=== PATIENT | male | born 1985 | race Two or more races ===

== ENCOUNTER 2021-10-24 11:59 | Outpatient (REF) | payer MEDICARE, MEDICAID, SELFPAY ==
--- NOTE | ~2021-10-24 | XR_ITS ---
EXAMINATION: XR KNEE, RIGHT CLINICAL INFORMATION: Right knee pain COMPARISON: None TECHNIQUE: Four views of the right knee. FINDINGS: There is no acute fracture or subluxation. Compartmental joint spaces are maintained. No joint effusion. The soft tissues are unremarkable. XR/XR knee RT 4V IMPRESSION: Normal right knee.
--- NOTE | ~2021-10-24 | XR_ITS ---
EXAMINATION: XR HAND, RIGHT CLINICAL INFORMATION: Right hand pain COMPARISON: None TECHNIQUE: PA, lateral, and oblique views of the right hand. FINDINGS: There is no fracture or dislocation. Alignment is anatomic. Joint spaces are maintained. Soft tissues are unremarkable. Tiny osseous excrescence extends from the first metacarpal shaft. XR/XR hand RT min 3V IMPRESSION: No suspicious findings of the right hand. No significant arthritic change.
--- NOTE | ~2021-10-24 | XR_ITS ---
EXAMINATION: XR RIBS, RIGHT CLINICAL INFORMATION: Pain. COMPARISON: None TECHNIQUE: 3 views of the right ribs were obtained. Frontal view of the chest. FINDINGS: Lungs are clear. No consolidation, pneumothorax, or pleural effusion. The cardiomediastinal silhouette and pulmonary vasculature are normal. Osseous structures are unremarkable. A marker overlies the lower right ribs. Ribs are intact. No fractures are identified. XR/XR ribs RT min 3V w CXR1V IMPRESSION: Clear lungs. No focal rib abnormality identified.
== END 2021-10-24 12:00 | disposition home or self-care (01) ==
LOC: HO.XRAY 11:59
PROVIDERS: PCP Family Medicine; Visit Provider Family Medicine
DX: M25.561 Pain in right knee (principal); M79.644 Pain in right finger(s); R07.81 Pleurodynia
CPT/HCPCS: 71101; 73130; 73564

== ENCOUNTER 2023-12-25 15:12 | Outpatient (REF) | payer MEDICAID, SELFPAY ==
[2023-12-25 16:23] LABS: MANUAL DIFF FLAG NO
[2023-12-25 16:29] LABS: Basophils Percent Auto 0.5 % (0-2); Eosinophils Absolute Auto 0.1 X10*3/uL (0.0-0.4); Eosinophils Percent Auto 1.5 % (0-4); Hemoglobin 13.8 g/dl (14.0-18.0); Imm Gran Abs Auto 0.03 X10*3/uL (0.00-0.03); Imm Gran Pct Auto 0.3 % (0.0-0.4); Lymphocytes Absolute Auto 1.9 X10*3/uL (1.2-4.9); Lymphocytes Percent Auto 21.5 % (20-40); Mean Corpuscular HGB Conc 32.9 g/dl (31.0-36.0); Mean Corpuscular Hemoglobin 31.8 pg (27.0-33.0); Mean Corpuscular Volume 96.8 fL (80.0-98.0); Mean Platelet Volume 9.2 fL (9.4-12.4); Monocytes Absolute Auto 0.7 X10*3/uL (0.1-1.2); Monocytes Percent Auto 7.8 % (2-11); Neutrophils Absolute Auto 5.9 x10*3/uL (2.0-8.3); Neutrophils Percent Auto 68.4 % (45-73); Platelet Count 359 X10*3/uL (160-400); Red Blood Count 4.34 X10*6/uL (4.60-5.80); Red Cell Distribution Width 13.1 % (11.0-16.0); White Blood Count 8.6 X10*3/uL (4.8-10.8)
[2023-12-25 16:51] LABS: Alanine Aminotransferase 26 U/L (0-40); Albumin Level 4.2 g/dL (3.5-5.0); Alkaline Phosphatase 136 U/L (39-117); Anion Gap 14 (12-20); Aspartate Amino Transferase 33 U/L (5-37); Bilirubin Total 0.4 mg/dL (0.0-1.0); Blood Urea Nitrogen 16 mg/dL (9-16); Calcium 9.4 mg/dL (8.4-10.2); Carbon Dioxide 30 mmol/L (22-29); Chloride 102 mmol/L (96-108); Estimated Glomerular Filt Rate > 60; Glucose Random 103 mg/dL (60-115); Potassium 3.9 mmol/L (3.3-5.1); Sodium 142 mmol/L (135-145); Total Protein 7.7 g/dL (6.5-8.0)
== END 2023-12-25 15:13 | disposition home or self-care (01) ==
LOC: HO.HHCL 15:12
PROVIDERS: Visit Provider Internal Medicine
DX: F43.10 Post-traumatic stress disorder, unspecified (principal)
CPT/HCPCS: 36415; 80053; 84443; 85025

== ENCOUNTER 2025-03-05 10:53 | Outpatient (REF) | payer MEDICAID, SELFPAY ==
[2025-03-05 11:20] LABS: MANUAL DIFF FLAG NO
[2025-03-05 11:35] LABS: Basophils Percent Auto 0.6 % (0-2); Eosinophils Absolute Auto 0.1 X10*3/uL (0.0-0.4); Eosinophils Percent Auto 1.4 % (0-4); Hematocrit 44.9 % (42.0-52.0); Hemoglobin 15.7 g/dl (14.0-18.0); Imm Gran Abs Auto 0.03 X10*3/uL (0.00-0.03); Imm Gran Pct Auto 0.5 % (0.0-0.4); Lymphocytes Absolute Auto 1.2 X10*3/uL (1.2-4.9); Lymphocytes Percent Auto 19.7 % (20-40); Mean Corpuscular Hemoglobin 34.2 pg (27.0-33.0); Mean Corpuscular Volume 97.8 fL (80.0-98.0); Mean Platelet Volume 9.3 fL (9.4-12.4); Monocytes Absolute Auto 0.8 X10*3/uL (0.1-1.2); Monocytes Percent Auto 12.2 % (2-11); Neutrophils Absolute Auto 4.1 x10*3/uL (2.0-8.3); Neutrophils Percent Auto 65.6 % (45-73); Platelet Count 247 X10*3/uL (160-400); Red Blood Count 4.59 X10*6/uL (4.60-5.80); Red Cell Distribution Width 12.2 % (11.0-16.0); White Blood Count 6.3 X10*3/uL (4.8-10.8)
[2025-03-05 12:26] LABS: Syphilis Screen Nonreactive (Nonreactive)
[2025-03-05 12:29] LABS: HIV AB/AG Nonreactive (Nonreactive); HIV Num 1 0.06 S/CO (0.00-0.99); ~HepC Num1 0.23 S/CO (0.00-0.79); ~Hepatitis C Antibody Nonreactive (Nonreactive)
[2025-03-05 12:36] LABS: TSH reflex Free T4 4.92 uIU/mL (0.32-4.0)
[2025-03-05 12:41] LABS: Alanine Aminotransferase 43 U/L (0-40); Albumin Level 4.7 g/dL (3.5-5.0); Anion Gap 16 (12-20); Aspartate Amino Transferase 59 U/L (5-37); Bilirubin Direct 0.2 mg/dL (0.0-0.5); Bilirubin Total 0.7 mg/dL (0.0-1.0); Blood Urea Nitrogen 12 mg/dL (9-16); Calcium 9.6 mg/dL (8.4-10.2); Carbon Dioxide 22 mmol/L (22-29); Chloride 104 mmol/L (96-108); Cholesterol 233 mg/dL (<200); Estimated Glomerular Filt Rate > 60; Glucose Random 110 mg/dL (60-115); HDL Cholesterol 54 mg/dL (>40); LDL Cholesterol Calculated 162 mg/dL (<100); Magnesium 1.9 mg/dL (1.6-2.6); Potassium 3.6 mmol/L (3.3-5.1); Sodium 138 mmol/L (135-145); Total Protein 8.2 g/dL (6.5-8.0); Triglycerides 85 mg/dL (<150)
[2025-03-05 12:48] LABS: Alkaline Phosphatase 119 U/L (39-117)
[2025-03-05 13:10] LABS: Free T4 (Free Thyroxine) 1.11 ng/dL (0.71-1.85)
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
--- OUTSIDE RECORDS SUMMARY | 2025-03-05 13:15 | XMS_ITS | Encounter Summary ---
Author Organization [facility] Address [address] [place] [address] [place] [address] Care Team Providers Care Leno Sewer Name Role Phone Mari Molina MD Primary Care Provider [phone] Encounter Details Date Type Department Care Team (Late st Contact Info) Description 03/05/2025 Orders Only [facility] [address] [place] [address] [phone] Mari Molina MD [address] [place] [address] [phone] Social History Tobacco Use Types Packs/Day Years Used Date Smoking Tobacco: Every Day Cigarettes Smokeless Tobacco: Never Sex and Gender Information Value Date Recorded Sex Assigned at Male 09/18/2022 10:39 AM EDT Legal Sex Male 10:39 AM EDT Gender Identity Male 07/17/2023 7:41 PM EDT Sexual Orientation Choose not to disclose 2021 10:39 AM EDT documented as of this encounter Plan of Treatment Upcoming Encounters Date Type Department Care Team (Late st Contact Info) Description 04/15/2025 9:00 AM EDT Office Visit [facility] [address] [place] [address] [phone] Mari Molina MD [address] [place] [address] [phone] documented as of this encounter Procedures Procedure Name Priority Date/Time Associated Diagnosis Comments T4, FREE Routine 03/05/2025 11:00 AM EDT documented in this encounter Results * T4, Free (03/05/2025 11:00 AM EDT) Free T4 (Free Thyroxine) 1.11 0.71 - 1.85 ng/dL [facility] 03/05/2025 11:0 0 AM EDT 03/05/2025 11:19 AM EDT us Mari Molina MD LAB BLOOD ORDERABLES Final Result [facility] [address] [place] [address] [phone] documented in this encounter Visit Diagnoses Not on filedocumented in this encounter Care Teams Leno Sewer Relationship Specialty Start Date End Date Mari Molina MD [address] [place] [phone] PCP - General Family Medicine 10/19/21 Austin Ross [place] Case Management 03/05/25 documented as of this encounter
--- OUTSIDE RECORDS SUMMARY | 2025-03-05 13:16 | XMS_ITS | Clinical Summary ---
Author Organization [facility] Address [address] [place] [address] Phone Care Team Providers Care Flute Polisher Name Role Phone No, Pcp (Do Not Change Name) Primary Care Provid er Unavailable Allergies No known active allergies Medications ibuprofen (ADVIL,MOTRIN) 600 MG tablet Take 1 tablet (600 mg total) by mouth every 6 (six) hours as needed.. 24 tablet 03/28/2018 Active Social History Tobacco Use Types Packs/Day Years Used Date Smoking Tobacco: Never Smokeless Tobacco: Never Alcohol Use Standard Drinks/Week Comments No 0 (1 standard drink = 0.6 oz pur e alcohol) Sex and Gender Information Value Date Recorded Sex Assigned at Not on file Legal Sex Male 6:32 PM EDT Gender Identity Not on file Sexual Orientation Not on file Last Filed Vital Signs Vital Sign Reading Time Taken Comments Blood Pressure 134/82 03/28/2018 10:04 PM EDT Pulse 71 03/28/2018 10:04 PM EDT Temperature 37.6 ??C (99.7 ??F) 03/28/2018 10:04 PM E DT Respiratory Rate 16 03/28/2018 10:04 PM EDT Oxygen Saturation 98% 03/28/2018 10:04 PM EDT Inhaled Oxygen Concentration - - Weight - - Height - - Body Mass Index - - Plan of Treatment Health Maintenance Due Date Last Done Comments HIV screening 1999 Hepatitis C screening 2004 Tetanus adult (Td q 10,TDAP once) 2006 Covid-19 vaccine series ( season) 2024 Influenza vaccine 07/20/2025 RSV Immunization (1 - 1-dose 75+ series) 2061 Meningococcal Vaccine Aged Out No edgar marilu eligible based on patient's age to complete this topic Pneumococcal Vaccine (2 - 49 years) Aged Out No longer eligible based on patient's age to complete this topic Insurance MEDICARE Member Subscriber Plan / Payer (Ef fective 2014-Present) Name:Sravan Guevara Member ID:[id number] Relation to Subscriber:Self Name:Sravan Guevara Subscriber ID:[id number] Payer ID:[id number] Group ID:Not on file Type:Not on file Address: [id number] MEDICARE Care Teams Flute Polisher Relationship Specialty Start Date End Date No, Pcp (Do Not Change Name) PCP - General 03/28/18
--- OUTSIDE RECORDS SUMMARY | 2025-03-05 13:16 | XMS_ITS | Encounter Summary ---
Author Organization [id number] Address [address] [place] [address] [address] [place] [address] Care Team Providers Care Employment Evaluator/Case Manager Name Role Phone Mari Molina MD Primary Care Provider [phone] Reason for Visit * Reason Comments Cough Sore Throat Encounter Details Date Type Department Care Team (Latest Contact Info) Description 03/05/2025 10:20 AM EDT Office Visit [facility] [address] [place] [address] Mari Molina MD [address], [place] [phone] Viral upper respiratory infection (Primary Dx); Elevated blood pressure reading in office without diagnosis of hypertension; Alcohol use disorder; Conjunctivitis of left eye, unspecified conjunctivitis type; Psychiatric diagnosis; Routine screening for STI (sexually transmitted infection); Homeless; Weight loss; Vitamin D deficiency; Bilateral deafness Social History Tobacco Use Types Packs/Day Years Used Date Smoking Tobacco: Every Day Cigarettes Smokeless Tobacco: Never Sex and Gender Information Value Date Recorded Sex Assigned at Male 09/18/2022 10:39 AM EDT Legal Sex Male 10:39 AM EDT Gender Identity Male 07/17/2023 7:41 PM EDT Sexual Orientation Choose not to disclose 2021 10:39 AM EDT documented as of this encounter Last Filed Vital Signs Vital Sign Reading Time Taken Comments Blood Pressure 144/96 03/05/2025 10:31 AM EDT Pulse 83 03/05/2025 10:08 AM EDT Temperature 37 ??C (98.6 ??F) 03/05/2025 10:08 AM EDT Respiratory Rate 18 03/05/2025 10:08 AM EDT Oxygen Saturation 99% 03/05/2025 10:08 AM EDT Inhaled Oxygen Concentration - - Weight 65.3 kg (144 lb) 03/05/2025 10:08 AM EDT Height - - Body Mass Index 24.72 07/20/2022 12:09 AM EDT documented in this encounter Progress Notes * Sam Green - 03/05/2025 10:20 AM EDT Subjective History was provided by the patient. Cypriot Sign Language used during visit. Sravan Guevara is a 39 y.o. male with past medical history of PTSD, nicotine dependence and bilateral deafness who presents for evaluation of symptoms of a URI. Symptoms include runny nose, congestion, and sore throat. Onset of symptoms was 1 day ago, unchanged since that time. Associated negative symptoms include fever, shortness of breath, and chest pain. Evaluation to date: none. Treatment to date: none. Pt reports he has been living under a bridge the past 2 years and drinks alcohol everyday. [facility] He has been living under a bridge in [place] for 2 years. He is accompanied by his adoptive father who is moving from [place] to [facility] with him. His mother is involved. Objective Vitals: 03/05/25 1008 03/05/25 1031 BP: (!) 152/113 (!) 144/96 BP Location: Right arm Patient Position: Sitting BP Cuff Size: Adult Pulse: 83 Resp: 18 Temp: 98.6 ??F (37 ??C) TempSrc: Temporal SpO2: 99% Weight: 144 lb (65.3 kg) Physical Exam Constitutional: Appearance: Normal appearance. HENT: Ears: Comments: Deaf. Nose: Congestion and rhinorrhea present. Mouth/Throat: Mouth: Mucous membranes are moist. Pharynx: No oropharyngeal exudate. Eyes: Conjunctiva/sclera: Conjunctivae normal. Pupils: Pupils are equal, round, and reactive to light. Comments: Style left upper lid 3 mm, mild scleral injection and clear discharge Cardiovascular: Rate and Rhythm: Normal rate and regular rhythm. Heart sounds: Normal heart sounds. Pulmonary: Effort: Pulmonary effort is normal. Breath sounds: Normal breath sounds. Musculoskeletal: Cervical back: Normal range of motion and neck supple. Lymphadenopathy: Cervical: Cervical adenopathy present. Skin: General: Skin is warm and dry. Neurological: Mental Status: Mental status is at baseline. Psychiatric: Behavior: Behavior normal. Office Visit on 03/05/2025 Component Date Value Ref Range Status Influenza A 03/05/2025 Negative Negative, Indeterminate Final Influenza B 03/05/2025 Negative Negative, Indeterminate Final Rapid COVID Ag 03/05/2025 Negative Final Rapid Strep A Screen 03/05/2025 Negative Negative, None Detected Final White Blood Count 03/05/2025 6.3 4.8 - 10.8 X10*3/uL Final Red Blood Count 03/05/2025 4.59 (L) 4.60 - 5.80 X10*6/uL Final Hemoglobin 03/05/2025 15.7 14.0 - 18.0 g/dl Final Hematocrit 03/05/2025 44.9 42.0 - 52.0 % Final Mean Corpuscular Volume 03/05/2025 97.8 80.0 - 98.0 fL Final Mean Corpuscular Hemoglobin 03/05/2025 34.2 (H) 27.0 - 33.0 pg Final Mean Corpuscular HGB Conc 03/05/2025 35.0 31.0 - 36.0 g/dl Final Red Cell Distribution Width 03/05/2025 12.2 11.0 - 16.0 % Final Platelet Count 03/05/2025 247 160 - 400 X10*3/uL Final Mean Platelet Volume 03/05/2025 9.3 (L) 9.4 - 12.4 fL Final Neutrophils Percent Auto 03/05/2025 65.6 45 - 73 % Final Imm Gran Pct Auto 03/05/2025 0.5 (H) 0.0 - 0.4 % Final Lymphocytes Percent Auto 03/05/2025 19.7 (L) 20 - 40 % Final Monocytes Percent Auto 03/05/2025 12.2 (H) 2 - 11 % Final Eosinophils Percent Auto 03/05/2025 1.4 0 - 4 % Final Basophils Percent Auto 03/05/2025 0.6 0 - 2 % Final NRBC Pct Auto 03/05/2025 0.0 0.0 - 0.2 /100WBC Final Neutrophils Absolute Auto 03/05/2025 4.1 2.0 - 8.3 x10*3/uL Final Imm Gran Abs Auto 03/05/2025 0.03 0.00 - 0.03 X10*3/uL Final Lymphocytes Absolute Auto 03/05/2025 1.2 1.2 - 4.9 X10*3/uL Final Monocytes Absolute Auto 03/05/2025 0.8 0.1 - 1.2 X10*3/uL Final Eosinophils Absolute Auto 03/05/2025 0.1 0.0 - 0.4 X10*3/uL Final Basophils Absolute Auto 03/05/2025 0.0 0.0 - 0.2 X10*3/uL Final NRBC Abs Auto 03/05/2025 0.000 0.0 - 0.012 X10*3/uL Final Problem List Items Addressed This Visit Viral upper respiratory infection - Primary Swabs negative, but given pt's presentation and environmental factors will prescribe Tamiflu empirically. -oseltamivir (Tamiflu) 75 MG, take 1 capsule (75 mg) by mouth 2 times daily for 5 days -droplet precautions discussed -supportive care discussed Relevant Medications oseltamivir (Tamiflu) 75 MG capsule Other Relevant Orders Influenza A (ID NOW Rapid Molecular) (Completed) Influenza B (ID NOW Rapid Molecular) (Completed) POCT Rapid COVID Ag (Completed) POCT rapid strep A manually resulted (Completed) Elevated blood pressure reading in office without diagnosis of hypertension Elevated BP initial was 152/113 and repeat 144/96. No hx of hypertension. Given pt's living situation and environmental factors concerned for adherence with BP monitor. Pt is in the process of gting into a house living with his step-father. -Discussed follow-up in 1 month. Alcohol use disorder Pt reports drinks daily. Did not elaborate. He is interested in [facility]. Email sent to [employer] Worker program with patients permission. 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 -Ideally would have Certified Turn Laster in addition to retail salesman due to hx delayed language. Other Visit Diagnoses Conjunctivitis of left eye, unspecified conjunctivitis type Relevant Medications trimethoprim-polymyxin b (Polytrim) ophthalmic solution Routine screening for STI (sexually transmitted infection) Relevant Orders CBC auto differential (Completed) Hepatitis C Antibody with Reflex to HCV, RNA, Quantitative, Real-Time PCR HIV-1/2 Antigen and Antibodies, Fourth Generation, with Reflexes Weight loss Relevant Orders TSH with Reflex to Free T4 Vitamin D deficiency -No evidence of acute disease process. Suspect viral URI. Swabs negative. Symptoms mild. -Will treat with Tamiflu and eye drops. -ER precautions discussed. -Seek medical attention for worsening symptoms. -Ordered basic labs to get pt reestablished and scheduled follow up for 04/15/2025 ISam, am serving as a scribe to document services personally performed by Dr. Rubalcava, based on the patient's response to questions by provider and providers statements to me. documented in this encounter Miscellaneous Notes * Assessment & Plan Note - Mari Molina MD - 03/05/2025 11:50 AM EDT Associated Problem(s): Bilateral deafness -Needs Cypriot Sign Language for all appointments. -Ideally would have Certified Turn Laster in addition to retail salesman due to hx delayed language. * Assessment & Plan Note - Mari Molina MD - 03/05/2025 11:49 AM EDT Associated Problem(s): Alcohol use disorder Pt reports drinks daily. Did not elaborate. He is interested in [facility]. Email sent to [employer] Worker program with patients permission. 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 No lesions on exam. He wants eye drops. -Prescribed trimethoprim-polymyxin b (Polytrim) ophthalmic solution. * Assessment & Plan Note - Sam Green - 03/05/2025 10:40 AM EDTAssociated Problem(s): Viral upper respiratory infection Swabs negative, but given pt's presentation and environmental factors will prescribe Tamiflu empirically. -oseltamivir (Tamiflu) 75 MG, take 1 capsule (75 mg) by mouth 2 times daily for 5 days -droplet precautions discussed -supportive care discussed * Assessment & Plan Note - Sam Green - 03/05/2025 10:33 AM EDTAssociated Problem(s): Elevated blood pressure reading in office without diagnosis of hypertension Elevated BP initial was 152/113 and repeat 144/96. No hx of hypertension. Given pt's living situation and environmental factors concerned for adherence with BP monitor. Pt is in the process of gting into a house living with his step-father. -Discussed follow-up in 1 month. documented in this encounter Plan of Treatment Upcoming Encounters Date Type Department Care Team (Late st Contact Info) Description 04/15/2025 9:00 AM EDT Office Visit [facility] [address] [place] [address] Mari Molina MD [address], [place] [phone] documented as of this encounter Procedures Procedure Name Priority Date/Time Associated Diagnosis Comments SYPHILIS SCREEN Routine 03/05/2025 11:00 AM EDT Psychiatric diagnosis TSH W/REFLEX TO FT4 Routine 03/05/2025 1 1:00 AM EDT Psychiatric diagnosis Weight loss CBC WITH AUTO DIFFERENTIAL Routine 03/05/2025 11:00 AM EDT Routine screening for STI (sexually transmitted infection) HEPATITIS C AB W/REFL TO HCV RNA, QN, PCR Routine 03/05/2025 11:00 AM EDT Routine screening for STI (sexually transmitted infection) HIV 1/2 ANTIGEN/ANTIBODY, FOURTH GENERATION W/RFL Routine 03/05/2025 11:00 AM EDT Routine screening for STI (sexually transmitted infection) MAGNESIUM Routine 03/05/2025 11:00 AM EDT Alcohol use disorder HEPATIC FUNCTION PANEL Routine 03/05/2025 11:00 AM EDT Alcohol use disorder LIPID PANEL, STANDARD Routine 03/05/2025 11:00 AM EDT Alcohol use disorder BASIC METABOLIC PANEL Routine 03/05/2025 11:00 AM [...] 10:11 AM EDT Viral upper respiratory infection documented in this encounter Results * Syphilis Screen (03/05/2025 11:00 AM EDT) [facility] Syphilis Screen Nonreactive Nonreactive [facility] Blood Venous blood specimen / Unknown 03/05/2025 11:00 AM EDT 03/05/2025 11:19 AM EDT Mari Molina MD LAB BLOOD ORDERABLES Final Result Performing Organization Address [facility] Co de Phone Number [facility] [address] [place] [address] [phone] * HIV-1/2 Antigen and Antibodies, Fourth Generation, with Reflexes (03/05/2025 11:00 AM EDT) HIV AB/AG Nonreactive Nonreactive [facility] Comment:HIV-1 p24 Ag and/or HIV-1/HIV-2 Ab not detected.A test result that is nonreactive does not exclude thepossibility of exposure to or infection with HIV-1 and/orHIV-2. Nonreactive results in this assay for individualswith prior exposure to HIV-1 and/or HIV-2 may be due toantigen and antibody levels that are below the limit ofdetection of this assay.The [employer] (Closed) HIV Ag/Ab Combo assay result andsupplemental assay results should be interpreted inconjunction with the patient's clinical presentation,history and other laboratory results. If the results areinconsistent with clinical evidence, additional testing issuggested to confirm the result. Blood Venous blood specimen / Unknown 03/05/2025 11:00 AM EDT 03/05/2025 11:19 AM EDT Mari Molina MD LAB BLOOD ORDERABLES Final Result Performing Organization Address [facility]/ZIP Co de Phone Number [facility] [address] [place] [address] [phone] * Hepatitis C Antibody with Reflex to HCV, RNA, Quantitative, Real-Time PCR (03/05/2025 11:00 AM EDT) Hepatitis C Antibody Nonreactive Nonreactive [facility] Comment:Antibodies to HCV no t detected; does not exclude early acuteHCV infection. Blood Venous blood specimen / Unknown 03/05/2025 11:00 AM EDT 03/05/2025 11:19 AM EDT Mari Molina MD LAB BLOOD ORDERABLES Final Result [facility] [address] [place] [address] [phone] * (ABNORMAL) CBC auto differential (03/05/2025 11:00 AM EDT) White Blood Count 6.3 4.8 - 10.8 X10*3/uL [facility] Red Blood Count 4.59(L) 4.60 - 5.80 X10*6/uL [facility] Hemoglobin 15.7 14.0 - 18.0 g/dl [facility] Hematocrit 44.9 42.0 - 52.0 % [facility] Mean Corpuscular Volume 97.8 80.0 - 98.0 fL [facility] Mean Corpuscular Hemoglobin 34.2(H) 27.0 - 33.0 pg [facility] Mean Corpuscular HGB Conc 35.0 31.0 - 36.0 g/dl [facility] Red Cell Distribution Width 12.2 11.0 - 16.0 % [facility] Platelet Count 247 160 - 400 X10*3/uL [facility] Mean Platelet Volume 9.3(L) 9.4 - 12.4 fL [facility] Neutrophils Percent Auto 65.6 45 - 73 % [facility] Imm Gran Pct Auto 0.5(H) 0.0 - 0.4 % [facility] Lymphocytes Percent Auto 19.7(L) 20 - 40 % [facility] Monocytes Percent Auto 12.2(H) 2 - 11 % [facility] Eosinophils Percent Auto 1.4 0 - 4 % [facility] Basophils Percent Auto 0.6 0 - 2 % [facility] NRBC Pct Auto 0.0 0.0 - 0.2 /100WBC [facility] Neutrophils Absolute Auto 4.1 2.0 - 8.3 x10*3/uL [facility] Imm Gran Abs Auto 0.03 0.00 - 0.03 X10*3/uL [facility] Lymphocytes Absolute Auto 1.2 1.2 - 4.9 X10*3/uL [facility] Monocytes Absolute Auto 0.8 0.1 - 1.2 X10*3/uL [facility] Eosinophils Absolute Auto 0.1 0.0 - 0.4 X10*3/uL [facility] Basophils Absolute Auto 0.0 0.0 - 0.2 X10*3/uL [facility] NRBC Abs Auto 0.000 0.0 - 0.012 X10*3/uL [facility] Blood Venous blood specimen / Unknown 03/05/2025 11:00 AM EDT 03/05/2025 11:17 AM EDT Mari Molina MD LAB BLOOD ORDERABLES Final Result Performing Organization Address [facility]/ZIP Co de Phone Number [facility] [address] [place] [phone] * (ABNORMAL) TSH with Reflex to Free T4 (03/05/2025 11:00 AM EDT) TSH reflex Free T4 4.92(H) 0.32 - 4.0 uIU/mL [facility] Blood 03/05/2025 11:0 0 AM EDT 03/05/2025 11:19 AM EDT Mari Molina MD LAB BLOOD ORDERABLES Final Result Performing Organization Address [facility]/ZIP Co de Phone Number [facility] [address] [place] [phone] * Basic Metabolic Panel (03/05/2025 11:00 AM EDT) Sodium 138 135 - 145 mmol/L [facility] Potassium 3.6 3.3 - 5.1 mmol/L [facility] Comment:Slight Hemolysis.Int erpret result with caution. Chloride 104 96 - 108 mmol/L [facility] Carbon Dioxide 22 22 - 29 mmol/L [facility] Anion Gap 16 12 - 20 [facility] Urea Nitrogen (BUN) 12 9 - 16 mg/dL [facility] Creatinine, Serum 0.92 0.5 - 1.4 mg/dL [facility] Estimated Glomerular Filt Rate >60 [facility] Comment:Chronic Kidney Disea se: Estimated GFR < 60 mL/min/[id number] Kidney Disease: Estimated GFR < 15 mL/min/1.73m2 Glucose 110 60 - 115 mg/dL [facility] Calcium 9.6 8.4 - 10.2 mg/dL [facility] Blood Venous blood specimen / Unknown 03/05/2025 11:00 AM EDT 03/05/2025 11:19 AM EDT us Mari Molina MD LAB BLOOD ORDERABLES Final Result [facility] [address], [place] [phone] * (ABNORMAL) Lipid Panel, Standard (03/05/2025 11:00 AM EDT) Triglycerides 85 <150 mg/dL [facility] Comment:Desirable Triglyceri de: less than 150 mg/dLBorderline High Triglyceride 150-199 mg/dLHigh Triglyceride: 200-499 mg/dLVery High Triglyceride: greater than or equal to 5OO mg/dL Cholesterol 233(H) <200 mg/dL [facility] Comment:Desirable Cholestero l: less than 200 mg/dLBorderline High Cholesterol: 200-239 mg/dLHigh Cholesterol: greater than 239 mg/dL LDL Cholesterol Calculated 162(H) <100 mg/dL [facility] Comment:Desirable LDL: less than 100 mg/dLNear Optimal/Above Optimal LDL: 110- 129 mg/dLBorderline High LDL: 130-159 mg/dLHigh LDL: 160-189 mg/dLVery High LDL: greater than or equal to 190 mg/dL HDL Cholesterol 54 >40 mg/dL [facility] Comment:Desirable HDL: great er than 40 mg/dL Note: This HDL assay may give artificially low results in patients with liver disease. Blood Venous blood specimen / Unknown 03/05/2025 11:00 AM EDT 03/05/2025 11:19 AM EDT Mari Molina MD LAB BLOOD ORDERABLES Final Result Performing Organization Address [facility] de Phone Number [facility] [address] [place] [phone] * Magnesium (03/05/2025 11:00 AM EDT) Magnesium 1.9 1.6 - 2.6 mg/dL [facility] Blood Venous blood specimen / Unknown 03/05/2025 11:00 AM EDT 03/05/2025 11:19 AM EDT Mari Molina MD LAB BLOOD ORDERABLES Final Result Performing Organization Address [facility] de Phone Number [facility] [address] [place] [phone] * (ABNORMAL) Hepatic Function Panel (03/05/2025 11:00 AM EDT) Bilirubin, Total 0.7 0.0 - 1.0 mg/dL [facility] Bilirubin, Direct 0.2 0.0 - 0.5 mg/dL [facility] Aspartate Amino Transferase 59(H) 5 - 37 U/L [facility] Comment:Slight Hemolysis.Int erpret result with caution. Alanine Aminotransferase 43(H) 0 - 40 U/L [facility] Total Protein 8.2(H) 6.5 - 8.0 g/dL [facility] Albumin Level 4.7 3.5 - 5.0 g/dL [facility] Alkaline Phosphatase 119(H) 39 - 117 U/L [facility] Blood Venous blood specimen / Unknown 03/05/2025 11:00 AM EDT 03/05/2025 11:19 AM EDT Result [facility] us Mari Molina MD LAB BLOOD ORDERABLES Final Result Performing Organization Address [facility] Co de Phone Number [facility] [address] [place] [phone] * Influenza B (ID NOW Rapid Molecular) (03/05/2025 10:29 AM EDT) [facility] Influenza B Negative Negative, Indeterminate [facility] Swab 03/05/2025 10:2 9 AM EDT us Mari Molina MD POINT OF CARE TEST ENTER/E DIT ORDERABLES Final Result Performing Organization Address [facility] de Phone Number [facility] [address] [place] [phone] * Influenza A (ID NOW Rapid Molecular) (03/05/2025 10:29 AM EDT) [facility] Influenza A Negative Negative, Indeterminate [facility] Swab 03/05/2025 10:2 9 AM EDT Result [facility] us Mari Molina MD POINT OF CARE TEST ENTER/E DIT ORDERABLES Final Result Performing Organization Address [facility] de Phone Number [facility] [address] [place] [phone] * POCT rapid strep A manually resulted (03/05/2025 10:12 AM EDT) [facility] Rapid Strep A Screen Negative Negative, None Detected Swab 03/05/2025 10:1 2 AM EDT us Mari Molina MD POINT OF CARE TEST ENTER/E DIT ORDERABLES Final Result * POCT Rapid COVID Ag (03/05/2025 10:11 AM EDT) Rapid COVID Ag Negative Swab 03/05/2025 10:1 1 AM EDT Mari Molina MD POINT OF CARE TEST ENTER/E DIT ORDERABLES Final Result documented in this encounter Visit Diagnoses Diagnosis Viral upper respiratory infection- Primary Acute upper respiratory infections of unspecified site Elevated blood pressure reading in office without diagnosis of hypertension Alcohol use disorder Conjunctivitis of left eye, unspecified conjunctivitis type Psychiatric diagnosis Unspecified nonpsychotic mental disorder Routine screening for STI (sexually transmitted infection) Screening examination for venereal disease Homeless Lack of housing Weight loss Loss of weight Vitamin D deficiency Bilateral deafness Unspecified hearing loss documented in this encounter Care Teams Employment Evaluator/Case Manager Relationship Specialty Start Date End Date Mari Molina MD [address] [place] [phone] PCP - General Family Medicine 10/19/21 [place] Case Management 03/05/25 documented as of this encounter
== END 2025-03-05 10:54 | disposition home or self-care (01) ==
LOC: HO.HHCL 10:53
PROVIDERS: Visit Provider Family Medicine
DX: F10.90 Alcohol use, unspecified, uncomplicated (principal); F99 Mental disorder, not otherwise specified; R63.4 Abnormal weight loss; Z11.3 Encounter for screening for infections with a predominantly sexual mode of transmission
CPT/HCPCS: 36415; 80048; 80061; 80076; 83735; 84439; 84443; 85025; 86780; 86803; 87389

== ENCOUNTER 2025-04-15 09:49 | Outpatient (REF) | payer MEDICAID, SELFPAY ==
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
[2025-04-15 12:28] LABS: Alanine Aminotransferase 57 U/L (0-40); Albumin Level 4.9 g/dL (3.5-5.0); Alkaline Phosphatase 113 U/L (39-117); Aspartate Amino Transferase 69 U/L (5-37); Bilirubin Direct 0.2 mg/dL (0.0-0.5); Cholesterol 247 mg/dL (<200); HDL Cholesterol 68 mg/dL (>40); LDL Cholesterol Calculated 142 mg/dL (<100); Total Protein 7.8 g/dL (6.5-8.0); Triglycerides 186 mg/dL (<150)
[2025-04-15 12:35] LABS: TSH reflex Free T4 1.68 uIU/mL (0.32-4.0)
[2025-04-15 12:55] LABS: Folate < 2.2 ng/mL (> or = 4.0); Vitamin B12 213 pg/mL (200-900)
[2025-04-15 12:59] LABS: Bilirubin Total 0.4 mg/dL (0.0-1.0)
== END 2025-04-15 09:50 | disposition home or self-care (01) ==
LOC: HO.HHCL 09:49
PROVIDERS: Visit Provider Family Medicine
DX: E78.5 Hyperlipidemia, unspecified (principal); R79.89 Other specified abnormal findings of blood chemistry; F10.90 Alcohol use, unspecified, uncomplicated; R74.01 Elevation of levels of liver transaminase levels
CPT/HCPCS: 36415; 80061; 80076; 82607; 82746; 84443